=== PATIENT | male | born 1945 | race Caucasian/White ===

== ENCOUNTER → 2019-03-21 09:24 | Outpatient (CLI) | payer OTHER, SELFPAY ==
--- NOTE | 2019-03-21 09:57 | DI.CT.S_ITS ---
PROCEDURE: CT KIDNEY URETER BLADDER (KUB) INDICATIONS: Right flank pain. Unspecified abdominal pain TECHNIQUE: Noncontrast 5 mm thick sections acquired from the diaphragms to the symphysis. 5 mm thick coronal and sagittal reformats were then performed. For radiation dose reduction, the following was used: automated exposure control, adjustment of mA and/or kV according to patient size. COMPARISON: [facility], CT, IVP (ABD & PEL WWO CONTRAST), 12/25/2016, 11:21. [facility], CT, KIDNEY/ URETER/BLADDER, 09/25/2015, 7:29. [facility], CT, KIDNEY/ URETER/BLADDER, 11/24/2015, 8:23. [facility], CT, KIDNEY/ URETER/BLADDER, 12/29/2014, 7:51. FINDINGS: Image quality: Excellent. Lung bases: Lung bases are clear. Heart size is normal. Coronary artery calcifications are seen. A small hiatal hernia is incidentally noted. Urinary system: Both kidneys are normal in size. There is a 2 mm nonobstructing kidney stone seen at the inferior pole the right kidney. No hydronephrosis or perinephric fat stranding. Both ureters appear non-dilated throughout their expected courses. Bladder wall thickness is normal; no calcified bladder stones. Other solid organs: Liver is normal in size. There is a 9 mm simple liver cyst seen that measures 2 Hounsfield units. Gallbladder wall is not thickened. Pancreas is normal in contours. Spleen is normal in size. No adrenal nodules. Peritoneum and bowel: Scrutiny is given to the right lower quadrant and the appendix. No appendix (either normal or abnormal) is identified on this study. No focal right lower quadrant inflammatory changes are seen. Unenhanced bowel loops demonstrate normal wall thickness and caliber. No free fluid or air. Prominent sigmoid diverticulosis is seen, without findings of diverticulitis. Nodes and vessels: No retroperitoneal or mesenteric adenopathy by size criteria. Aorta and inferior vena cava are normal in caliber. Abdominal wall: No ventral hernias. Pelvis: No free pelvic fluid. No inguinal hernias or adenopathy. The prostate is prominent, measuring 5.8 cm transversely. Bones: No suspicious bony lesions. No vertebral body compression fractures. Mild levoconvex scoliotic curvature is noted. Degenerative changes are seen throughout, which are most prominent at the L5-S1 level. IMPRESSION: No hydronephrosis is seen. 2 mm nonobstructing right-sided kidney stone. No appendix can be seen. No focal right lower quadrant inflammatory changes are seen. Incidental note is made of: Coronary artery calcification Small hiatal hernia Simple liver cyst Diverticulosis is seen, without findings of active diverticulitis. and Levoconvex scoliotic curvature Focal S1 degenerative change Prominent prostate Dictated by: Monico Alejandro M.D. on 03/21/2019 at 9:39 Approved by: Monico Alejandro M.D. on 03/21/2019 at 9:44
== END ==
PROVIDERS: PCP Internal Medicine; Referring Provider Urology; Visit Provider Internal Medicine
DX: R10.9 Unspecified abdominal pain (principal); N20.0 Calculus of kidney; K76.89 Other specified diseases of liver; K57.90 Diverticulosis of intestine, part unspecified, without perforation or abscess without bleeding; K44.9 Diaphragmatic hernia without obstruction or gangrene; I25.10 Atherosclerotic heart disease of native coronary artery without angina pectoris; M41.9 Scoliosis, unspecified; M47.818 Spondylosis without myelopathy or radiculopathy, sacral and sacrococcygeal region
CPT/HCPCS: 74176

== ENCOUNTER 2019-03-31 21:39 | Emergency (ER) | payer OTHER, SELFPAY ==
--- NOTE | 2019-03-31 21:45 | ED.EAR ---
HPI - Ear Problem General Chief complaint: Skin/Abscess/Foreign Body Stated complaint: RUBBER PIECE STUCK IN LEFT EAR Time Seen by Provider: 03/31/19 21:43 Source: patient and family Mode of arrival: ambulatory Limitations: no limitations History of Present Illness HPI Narrative: 73-year-old male nonsmoker with history of asthma, GERD and hyperlipidemia presents with his for evaluation of foreign body in his left ear. The patient removed his hearing aid and the rubber year piece became dislodged in his external auditory canal. His tried getting out unsuccessfully hence his presentation here. He is otherwise well and free of complaint. He denies any pain MD Complaint: foreign body Location: left ear Exacerbating factors: nothing Discharge from ear: no Treatment prior to arrival: none Related Data Home Medications Medication Instructions Recorded Confirmed ASPIRIN CHEW - 81 mg PO Q DAY #0 10/11/06 (ASPIRIN) atorvastatin [Lipitor] 20 mg PO HS #0 10/11/06 albuterol sulfate [Proventil HFA] 2 puff INH Q4HP PRN #0 10/30/16 alfuzosin 10 mg PO HS #0 10/30/16 loratadine [Claritin Liqui-Gel] 10 mg PO PRN PRN #0 10/30/16 Previous Rx's Medication Instructions Recorded metoprolol succinate 50 mg PO QDAY #30 ter 11/01/16 pantoprazole [Protonix] 40 mg PO QDAY #20 tab 11/07/16 Review of Systems Constitutional Denies chills, Denies fever(s), Denies lethargy and Denies weakness Eyes Denies change in vision, Denies eye discharge, Denies irritation and Denies loss of vision ENT Ears, Nose, Mouth, and Throat: Reports system reviewed and no additional complaints, except as docu, Denies change in voice, Denies neck pain and Denies sore throat Cardiovascular Denies chest pain, Denies irregular heart rhythm, Denies lightheadedness, Denies palpitations, Denies dyspnea, Denies dyspnea on exertion and Denies orthopnea Respiratory Denies cough, Denies dyspnea, Denies dyspnea on exertion and Denies wheezing Gastrointestinal Gastrointestinal: Denies abdominal pain, Denies change in bowel habits, Denies diarrhea, Denies nausea and Denies vomiting Genitourinary Denies hematuria, Denies flank pain, Denies urinary incontinence and Denies urinary urgency Musculoskeletal Denies neck pain Integumentary/Breasts Denies pruritus, Denies erythema, Denies rash and Denies wounds Neurologic Denies confusion, Denies loss of vision and Denies weakness Psychiatric Denies anxiety, Denies confusion, Denies depression, Denies homicidal ideation and Denies suicidal ideation Endocrine Denies palpitations Hematologic/Lymphatic Denies easy bruising Allergic/Immunologic Denies wheezing PFSH Social History Smoking Status: Never smoker Social History Smoking Status: Never smoker Exam Narrative Exam Narrative: 73-year-old male, appears younger than stated age and in no obvious distress. at bedside Initial Vital Signs Initial Vital Signs: Vital Signs Temperature 97.8 F 03/31/19 21:58 Pulse Rate 84 03/31/19 21:58 Respiratory Rate 16 03/31/19 21:58 Blood Pressure 159/95 H 03/31/19 21:58 Pulse Oximetry 98 03/31/19 21:58 Const General: cooperative, healthy appearing and comfortable HENMT Head: normal to inspection Ears: EAC abnormal foreign body on the left Face and sinus: normal facial exam Eyes General: appearance normal, both eyes and all related structures Pupils: PERRL EOM: EOM intact bilaterally Resp Effort & Inspection: normal respiratory effort, able to speak in complete sentences, no respiratory distress and no use of accessory muscles Auscultation: clear to auscultation bilaterally, no rales, no rhonchi and no wheezes Cardio Rate: regular rate Rhythm: regular rhythm Heart Sounds: no click, no gallops, no murmurs and no rubs Pulses: normal peripheral pulses Skin General: no rashes or lesions noted Neuro General: alert, awake and oriented x3 Psych Appearance: grossly normal and well kempt Procedures Foreign Body EAR Location: ear canal (L) Foreign Body Suspected: other plastic TM intact pre-procedure: yes Foreign Body Removed: yes Foreign Body Removal Technique: instrumentation Tympanic Membrane Intact Post Procedure: Yes Patient Tolerated Procedure: Well Complications: none Course Vital Signs - 8 hr 03/31/19 21:58 Temperature 97.8 F Pulse Rate 84 Respiratory Rate 16 Blood Pressure 159/95 H Pulse Oximetry 98 Discharge Plan Departure Patient Disposition: Home Clinical Impression: Foreign body in ear Qualifiers: Encounter type: initial encounter Laterality: left Qualified Code(s): T16.2XXA - Foreign body in left ear, initial encounter Discharge Date/Time: 03/31/19 22:30 Interventions: ED Discharge Assessment Last Done: 03/31/19 22:30 Prescriptions: No Action atorvastatin [Lipitor] 20 MG tablet 20 mg PO HS Qty: 0 RF: 0 ASPIRIN CHEW - (ASPIRIN) 81 mg PO Q DAY Qty: 0 RF: 0 alfuzosin 10 MG tablet extended release 24 hr 10 mg PO HS Qty: 0 RF: 0 albuterol sulfate [Proventil HFA] 90 MCG/PUFF HFA aerosol inhaler 2 puff INH Q4HP PRNQty: 0 RF: 0 loratadine [Claritin Liqui-Gel] 10 MG capsule 10 mg PO PRN PRNQty: 0 RF: 0 metoprolol succinate 50 MG tablet extended release 24 hr 50 mg PO QDAY Qty: 30 RF: 0 pantoprazole [Protonix] 40 MG tablet,delayed release (DR/EC) 40 mg PO QDAY Qty: 20 RF: 0 Referrals: Anjelica Saavedra MD [Primary Care Provider] -
[2019-03-31 21:58] VITALS: BP 159/95; PULSE 84; RESP 16; TEMP 36.6; O2SAT 98; BMI 25.6
== END 2019-03-31 22:30 | disposition home or self-care (01) ==
PROVIDERS: Emergency Provider Emergency Medicine; PCP Internal Medicine
DX: T16.2XXA Foreign body in left ear, initial encounter (principal)
CPT/HCPCS: 99282

== ENCOUNTER → 2019-04-09 09:31 | Outpatient (CLI) | payer OTHER, SELFPAY ==
--- NOTE | 2019-04-09 09:58 | DI.CT.S_ITS ---
PROCEDURE: CT ABDOMEN PELVIS WO/W CON INDICATIONS: HEMATURIA TECHNIQUE: Optional 5 mm thick noncontrast images acquired from the diaphragm to the symphysis pubis. After the administration of intravenous contrast, 5 mm thick images acquired from the diaphragm to the symphysis pubis after a 10-minute delay. 2 mm thick coronal and sagittal reformats were then performed of the kidneys and ureters. For radiation dose reduction, the following was used: automated exposure control, adjustment of mA and/or kV according to patient size. COMPARISON: [facility], CT, CT KIDNEY URETER BLADDER (KUB), 03/21/2019, 9:32. FINDINGS: Image quality: Excellent. Lung bases: Lung bases are clear. Heart size is normal. Small hiatal hernia. Urinary system: Possible 2 mm nonobstructing calculus in the inferior pole the right kidney is less conspicuous since the prior study. No definite left-sided nephrolithiasis. There are bilateral small subcentimeter presumed exophytic cysts although these are technically too small to characterize and indeterminate. No hydronephrosis. Perinephric stranding. Ureters appear nondilated. The bladder is largely decompressed although no gross radiopaque bladder calculi identified. No definite suspicious filling defects seen within the contrast opacified portions of the renal collecting systems, ureters and bladder Other solid organs: 9 mm presumed hepatic cysts is grossly unchanged. Gallbladder unremarkable. Biliary system is non dilated. Pancreas enhances normally. Spleen is normal in size and enhancement. No adrenal nodules. Peritoneum and bowel: Bowel loops demonstrate normal wall thickness and caliber. No free fluid or air. Colonic diverticulosis is seen without evidence of acute complication. Rectum is grossly unremarkable Appendix is not clearly identified however no suspicious pericecal inflammatory changes are identified Nodes and vessels: No retroperitoneal or mesenteric adenopathy by size criteria. Aorta and inferior vena cava are normal in size. Abdominal wall: No ventral hernias. Pelvis: No pathologic free pelvic fluid. No inguinal hernias or adenopathy. Bones: No suspicious bony lesions. No vertebral body compression fractures. IMPRESSION: Less conspicuous appearance (versus resolution) of the previously described tiny nonobstructive right renal calculus since the prior study. No evidence of urinary obstruction. Elsewhere, no interval change. Dictated by: Mook Law M.D. on 04/09/2019 at 10:17 Approved by: Mook Law M.D. on 04/09/2019 at 10:26
== END ==
PROVIDERS: Family Provider Urology; PCP Internal Medicine; Visit Provider Internal Medicine
DX: R31.9 Hematuria, unspecified (principal); K57.90 Diverticulosis of intestine, part unspecified, without perforation or abscess without bleeding
CPT/HCPCS: 74178; Q9967

== ENCOUNTER → 2019-06-05 06:51 | Outpatient (CLI) | payer OTHER, SELFPAY ==
[2019-06-05 08:53] LABS: Alanine Aminotransferase 32 IU/L (21-72); Aspartate Aminotransferase 40 IU/L (17-59); Cholesterol 132 mg/dL (140-199); HDL Cholesterol 43 mg/dL (40-60); LDL Cholesterol Calculated 74 mg/dL (<100); Triglycerides 77 mg/dL (35-150)
== END ==
PROVIDERS: PCP Internal Medicine; Visit Provider Internal Medicine
DX: E78.5 Hyperlipidemia, unspecified (principal)
CPT/HCPCS: 36415; 80061; 84450; 84460

== ENCOUNTER 2019-07-16 13:11 | Day surgery (SDC) | payer OTHER, SELFPAY ==
[2019-07-16 13:59] VITALS: BP 190/98; PULSE 65; RESP 19; TEMP 36.8; O2SAT 97; BMI 24.7
--- NOTE | 2019-07-16 14:13 | PM.HP.1 ---
History of Present Illness History of Present Illness Date Patient Seen: 07/16/19 Time Patient Seen: 14:13 Chief complaint: [id number] Narrative: History of adenomatous colon polyps and family history of colon cancer in his sister Patient History Family & Social History Tobacco & Substance use: Smoking Status Never smoker Substance Use Type does not use Meds Home Medications and Allergies Home Medications Medication Instructions Recorded Confirmed Type atorvastatin [Lipitor] 20 mg PO HS #0 10/11/06 07/16/19 History alfuzosin 10 mg PO HS #0 10/30/16 07/16/19 History metoprolol succinate 50 mg PO QDAY #30 ter 11/01/16 07/16/19 Rx dabigatran etexilate [Pradaxa] 150 mg PO BID 07/16/19 07/16/19 History Allergies Allergy/AdvReac Type Severity Reaction Status Date / Time No Known Drug Allergies Allergy Verified 07/16/19 13:54 Exam Narrative Exam Narrative: Oropharynx free of lesions Chest clear to auscultation percussion Cardiac exam reveals no S3 or murmur Assessment & Plan Assessment & Plan narrative: Family history of colon cancer and personal history of colon polyps need for follow-up colonoscopy. Risks, benefits, alternatives have been explained.
--- NOTE | 2019-07-16 14:14 | PM.OP.ENDO ---
Operative Date/Time/Diagnoses Date of procedure: 07/16/19 Time of procedure: 14:14 Pre-op diagnosis: See indication Procedure & Clinicians Study performed: Colonoscopy Same procedure as scheduled: Yes Indications: Personal history of colon polyps and family history of colon cancer in a first-degree relative Surgeon: Daija Walsh Procedure Notes Procedure in detail: After informed consent was obtained the patient was placed in left lateral decubitus position. The video colonoscope was introduced the rectum slowly advanced to cecum. On slow withdrawal mucosa was carefully examined. The scope was removed. The patient tolerated the procedure well. Preparation was only fair prior to washing after which a was good. Blood loss none Complications none Sedation Total sedation time 15 minutes Versed 5 mg fentanyl 100 mg IV titration Findings 1. Extensive sigmoid diverticulosis 2. Otherwise negative colonoscopy to cecum One further colonoscopy in 5 years may be warranted. Patient have be in excellent health. He will restart his Pradaxa today.
[2019-07-16] MEDS: SODIUM CHLORIDE 0.9% 1,000 ML 150 ML IV (14:17)
[2019-07-16] MEDS: fentaNYL 250 MCG/5 ML INJ IV (15:06)
[2019-07-16] MEDS: MIDAZOLAM 5 MG/5 ML VIAL IV (15:06)
[2019-07-16 15:09] VITALS: BP 150/94; PULSE 72; RESP 12; TEMP 37.2; O2SAT 92
[2019-07-16 15:13] VITALS: BP 147/91; PULSE 68; RESP 12; O2SAT 94
[2019-07-16 15:18] VITALS: BP 145/98; PULSE 81; RESP 14; O2SAT 95
[2019-07-16 15:35] VITALS: BP 163/93; PULSE 77; RESP 16; TEMP 37; O2SAT 95
== END 2019-07-16 15:49 | disposition home or self-care (01) ==
PROVIDERS: PCP Internal Medicine; Visit Provider Internal Medicine Gastroenterology
PROC: 0DJD8ZZ Inspection of Lower Intestinal Tract, Via Natural or Artificial Opening Endoscopic (ICD-10-PCS; CPT 45378; principal; 2019-07-16 14:30)
DX: Z86.010 Personal history of colon polyps (principal); Z80.0 Family history of malignant neoplasm of digestive organs; K57.30 Diverticulosis of large intestine without perforation or abscess without bleeding
CPT/HCPCS: G0105; J2250; J3010

== ENCOUNTER → 2019-10-17 06:59 | Outpatient (CLI) | payer OTHER, SELFPAY ==
[2019-10-17 08:56] LABS: Hemoglobin A1C% w Est Avg Glu 5.3 % (4.0-6.0)
[2019-10-17 09:06] LABS: BUN Creatinine Ratio 15.5 (6-22); Blood Urea Nitrogen 17 mg/dL (9-20); Calcium 9.2 mg/dL (8.4-10.2); Carbon Dioxide 29 mmol/L (22-32); Chloride 104 mmol/L (98-107); Estimated Glomerular Filt Rate > 60.0 mL/min (>60); Glucose 98 mg/dL (80-110); HEMOLYSIS < 15 (0-50); Potassium 4.2 mmol/L (3.4-5.1); Sodium 139 mmol/L (137-145)
[2019-10-17 09:36] LABS: TSH w/ Reflex to FT4 4.09 uIU/mL (0.47-4.68)
== END ==
PROVIDERS: PCP Internal Medicine; Visit Provider Internal Medicine
DX: I10 Essential (primary) hypertension (principal); R81 Glycosuria
CPT/HCPCS: 36415; 80048; 83036; 84443

== ENCOUNTER → 2021-01-21 07:10 | Outpatient (CLI) | payer OTHER, SELFPAY ==
[2021-01-21 08:45] LABS: Blood Urea Nitrogen 16 mg/dL (9-20); Calcium 8.7 mg/dL (8.4-10.2); Carbon Dioxide 27 mmol/L (22-32); Chloride 106 mmol/L (98-107); Estimated Glomerular Filt Rate > 60.0 mL/min (>60); Glucose 108 mg/dL (80-110); HEMOLYSIS < 15 (0-50); Potassium 3.9 mmol/L (3.4-5.1); Sodium 138 mmol/L (137-145)
== END ==
PROVIDERS: PCP Internal Medicine; Referring Provider Specialist; Visit Provider Specialist
DX: N13.8 Other obstructive and reflux uropathy (principal); N40.1 Benign prostatic hyperplasia with lower urinary tract symptoms; N23 Unspecified renal colic
CPT/HCPCS: 36415; 80048; 84153

== ENCOUNTER → 2021-01-26 10:51 | Outpatient (CLI) | payer OTHER, SELFPAY ==
--- NOTE | 2021-01-26 11:32 | DI.CT.S_ITS ---
PROCEDURE: CT ABDOMEN PELVIS WO/W CON INDICATIONS: Hematuria TECHNIQUE: Optional 5 mm thick noncontrast images acquired from the diaphragm to the symphysis pubis. After the administration of intravenous contrast, 5 mm thick images acquired from the diaphragm to the symphysis pubis after a 10-minute delay. 2 mm thick coronal and sagittal reformats were then performed of the kidneys and ureters. For radiation dose reduction, the following was used: automated exposure control, adjustment of mA and/or kV according to patient size. COMPARISON: [facility], CT, CT ABDOMEN PELVIS WO/W CON, 04/09/2019, 9:42. FINDINGS: Image quality: Excellent. Lung bases: Lung bases are clear. Heart size is normal. Small hiatal hernia. Urinary system: Both kidneys are normal in size, without hydronephrosis or nephrolithiasis on pre-contrast images. Simple appearing cysts in the left kidney. A few subcentimeter cysts which are too small to further characterize. No perinephric fat stranding. There is normal bilateral renal enhancement. Renal calyces appear normal in morphology when filled with contrast. Opacified portions of both ureters demonstrate normal caliber. Bladder is unremarkable. No calcified bladder stones. Other solid organs: Liver is normal in size and enhancement. Small benign cyst in the right lobe of the liver, unchanged. Gallbladder is unremarkable. Biliary system is non dilated. Pancreas enhances normally. Spleen is normal in size and enhancement. No adrenal nodules. Peritoneum and bowel: Bowel loops demonstrate normal wall thickness and caliber. Diverticulosis. Mild stranding in the left lower quadrant adjacent to the diverticuli. No fluid collection. Appendix is not seen. No free fluid or air. Nodes and vessels: No retroperitoneal or mesenteric adenopathy by size criteria. Aorta and inferior vena cava are normal in size. Moderate calcified atherosclerotic plaque. Abdominal wall: Tiny fat containing periumbilical hernia. Pelvis: No pathologic free pelvic fluid. No inguinal hernias or adenopathy. Prostatomegaly. Prosthetic or utricle cyst measuring 1.2 cm, (190), unchanged. Bones: No suspicious bony lesions. No vertebral body compression fractures. IMPRESSION: 1. No upper urinary tract filling defect within the well opacified ureters. 2. No kidney stones. No hydronephrosis. 3. Diverticulosis. Mild stranding in the left lower quadrant which could be the sequelae of prior diverticulitis. No fluid collection. 4. Prostatomegaly. Small prosthetic cyst or utricle cyst, unchanged. Dictated by: Jesús Serra M.D. on 01/26/2021 at 13:49 Approved by: Jesús Serra M.D. on 01/26/2021 at 14:00
== END ==
PROVIDERS: PCP Internal Medicine; Referring Provider Specialist; Visit Provider Specialist
DX: K57.90 Diverticulosis of intestine, part unspecified, without perforation or abscess without bleeding (principal); N40.0 Benign prostatic hyperplasia without lower urinary tract symptoms; R31.9 Hematuria, unspecified
CPT/HCPCS: 74178; Q9967

== ENCOUNTER → 2021-07-27 07:30 | Outpatient (CLI) | payer OTHER, SELFPAY ==
[2021-07-27 09:40] LABS: Prostate Specific Antigen 1.68 ng/mL (0.10-4.00)
== END ==
PROVIDERS: PCP Physician Assistant Medical; Referring Provider Specialist; Visit Provider Specialist
DX: N13.8 Other obstructive and reflux uropathy (principal); N40.1 Benign prostatic hyperplasia with lower urinary tract symptoms
CPT/HCPCS: 36415; 84153

== ENCOUNTER → 2022-01-25 07:12 | Outpatient (CLI) | payer OTHER, SELFPAY ==
[2022-01-25 10:09] LABS: Prostate Specific Antigen 1.03 ng/mL (0.10-4.00)
== END ==
PROVIDERS: PCP Physician Assistant Medical; Referring Provider Specialist; Visit Provider Specialist
DX: N40.1 Benign prostatic hyperplasia with lower urinary tract symptoms (principal); N13.8 Other obstructive and reflux uropathy
CPT/HCPCS: 36415; 84153

== ENCOUNTER → 2022-02-08 09:10 | Outpatient (CLI) | payer OTHER, SELFPAY ==
--- NOTE | 2022-02-08 09:13 | DI.MG.S_ITS ---
MALE BILATERAL DIGITAL DIAGNOSTIC MAMMOGRAM 3D/2D: 02/08/2022 CLINICAL: Left breast lump. No prior exams were available for comparison. Bilateral mild gynecomastia. No suspicious mass, calcification, or other finding in either breast. IMPRESSION: NEGATIVE There is no mammographic evidence of malignancy. Mild bilateral gynecomastia. This exam was interpreted at Station ID: [id number]. NOTE: For mammograms, a report in lay terms will be sent to the patient. Approximately 15% of breast malignancies will not be visualized mammographically. In the management of a palpable breast mass, a negative mammogram must not discourage biopsy of a clinically suspicious lesion. Electronically Signed By: Mike Lee M.D. jr/:02/09/2022 10:24:21 copy to: NELA REENE M.D., [facility], ph: [phone], fax: [phone] letter sent: Normal Exam ACR BI-RADS Category 1: Negative [id number]
== END ==
PROVIDERS: PCP Physician Assistant Medical; Referring Provider Physician Assistant Medical; Visit Provider Physician Assistant Medical
DX: N63.20 Unspecified lump in the left breast, unspecified quadrant (principal); N62 Hypertrophy of breast
CPT/HCPCS: 77066; G0279

== ENCOUNTER → 2023-03-13 07:02 | Outpatient (CLI) | payer OTHER, SELFPAY ==
[2023-03-13 09:54] LABS: Prostate Specific Antigen 1.94 ng/mL (0.10-4.00)
== END ==
PROVIDERS: PCP Physician Assistant Medical; Referring Provider Specialist; Visit Provider Specialist
DX: N40.1 Benign prostatic hyperplasia with lower urinary tract symptoms (principal); N13.8 Other obstructive and reflux uropathy
CPT/HCPCS: 36415; 84153

== ENCOUNTER → 2024-03-19 08:08 | Outpatient (CLI) | payer OTHER, SELFPAY | PROVIDERS: PCP Physician Assistant Medical; Visit Provider Specialist | DX: N40.1 Benign prostatic hyperplasia with lower urinary tract symptoms (principal); N13.8 Other obstructive and reflux uropathy | CPT/HCPCS: 87086 ==

== ENCOUNTER 2025-03-31 10:06 | Emergency (ER) | payer OTHER, SELFPAY ==
[2025-03-31] VITALS (18 sets, daily range): BP systolic 162–206; BP diastolic 72–92; PULSE 48–79; RESP 15–26; TEMP 36.6; O2SAT 96–99; BMI 24.0
--- NOTE | 2025-03-31 10:19 | EKG_ITS ---
[address] [address] Test Date: 2025-03-31 Pat Name: Alexandr Kate Department: Room: Gender: Male [employer] Agent: DEBORAH : 1945 Requested By: Order Number: [id number] Reading MD: Lonnie Richardson Measurements Intervals [place] Rate: 55 P: 54 [place]: 198 QRS: 49 QRSD: 82 T: 63 QT: 398 QTc: 380 Interpretive Statements Sinus bradycardia Electronically Signed On 03-31-2025 14:01:37 PDT by Lonnie Richardson
--- NOTE | 2025-03-31 10:21 | DI.RAD.S_ITS ---
PROCEDURE: XR CHEST 1V INDICATIONS: chest pain TECHNIQUE: One view of the chest was acquired. COMPARISON: [facility], CHEST 1 VIEW, 11/06/2016, 21:22. FINDINGS: Surgical changes and devices: None. Lungs and pleura: Lungs are clear. No pleural effusions or pneumothorax. Mediastinum: Mediastinal contours appear normal. Heart size is normal. Bones and chest wall: No suspicious bony lesions. Overlying soft tissues appear unremarkable. IMPRESSION: No acute cardiopulmonary abnormality is seen. Dictated by: Ly Srivastava MD, PhD on 03/31/2025 at 11:12 Approved by: Ly Srivastava MD, PhD on 03/31/2025 at 11:13
[2025-03-31 10:40] LABS: Add Manual Diff / Slide Review NO; Basophils Absolute Auto 0 /uL (0-100); Basophils Percent Auto 0.4 % (0-2); Eosinophils Absolute Auto 0 /uL (0-450); Eosinophils Percent Auto 0.9 % (2-4); Hematocrit 37.7 % (41-53); Hemoglobin 12.9 g/dL (13.5-17.5); Lymphocytes Absolute Auto 1500 /uL (1100-4500); Mean Corpuscular HGB Conc 34.1 % (30-36); Mean Corpuscular Hemoglobin 32.4 PG (26-34); Mean Corpuscular Volume 95.1 fL (80-100); Monocytes Absolute Auto 700 /uL (0-900); Monocytes Percent Auto 14.3 % (3-14); Neutrophils Absolute Auto 2600 /uL (1500-7000); Neutrophils Percent Auto 53.4 % (50-75); Platelet Count 101 X10^3/uL (150-400); Red Blood Cell Count 3.96 X10^6/uL (4.5-5.9); Red Cell Distribution Width 13.4 % (11.6-14.8); White Blood Cell Count 4.8 X10^3/uL (4.5-11.0)
--- NOTE | 2025-03-31 10:47 | ED_ITS ---
HPI - General Adult General Chief complaint: Dizziness Stated complaint: needs blood pressure checked/light headed and dizz Time Seen by Provider: 03/31/25 10:11 Source: patient Mode of arrival: Ambulatory History of Present Illness HPI narrative: 79-year-old gentleman with a history of hypertension, at least 1 prior episode of atrial fibrillation currently on Pradaxa, hyperlipidemia presents complaining of severe fatigue and this morning after minimal yd work profuse diaphoresis. He notes that he has been slowing down significantly over the last year but over the last couple of weeks it does seem like he has been significantly more fatigued. He has not experienced exertional dyspnea nor orthopnea. Until today he has not had any episodes of diaphoresis. To his knowledge he does not have any cardiac disease. He last saw daily sales audit clerk 7 years ago in his followed by physicians at [facility]. No recent fever, cough, chills, nausea, vomiting, diarrhea. No lower extremity edema. he notes over the past number of months to years when he stands up he typically gets somewhat lightheaded and feels like he is falling forward with a bit of dizziness. He experiences again this morning with his diaphoretic episode. Related Data Home Medications Medication Instructions Recorded Confirmed alfuzosin 10 mg tablet,extended 10 mg PO HS ##0 10/30/16 03/19/24 release 24 hr dabigatran etexilate 150 mg 150 mg PO BID 07/16/19 03/19/24 capsule (Pradaxa) cholecalciferol (vitamin D3) 50 50 mcg PO DAILY 11/26/20 03/19/24 mcg (2,000 unit) capsule losartan 50 mg tablet 50 mg PO DAILY 11/26/20 03/19/24 atorvastatin 20 mg tablet (Lipitor) 40 mg PO HS #0 tabs 03/21/23 03/19/24 Previous Rx's Medication Instructions Recorded metoprolol succinate 50 mg 50 mg PO QDAY ##30 11/01/16 tablet,extended release 24 hr Allergies Allergy/AdvReac Type Severity Reaction Status Date / Time No Known Drug Allergies Allergy Verified 03/31/25 10:15 Review of Systems Review of Systems Narrative: Pertinent positive and negative findings as per HPI Patient History Medical History History of nephrolithiasis Hematuria BPH w urinary obs/LUTS H/O nephrolithotomy with removal of calculi Kidney stones Basal cell carcinoma Arthritis Surgical History History of hernia repair History of appendectomy Family History Father Coronary artery disease Kidney stones Social History marital status: number of children: 2 household members: spouse occupational status: employed Smoking Status: Unknown if ever smoked alcohol intake: never caffeine: No Smoking Status: Unknown if ever smoked Exam Initial Vital Signs Initial Vital Signs: Vital Signs Temperature 97.8 F 03/31/25 10:07 Pulse Rate 71 03/31/25 10:07 Respiratory Rate 17 03/31/25 10:07 Blood Pressure 206/92 H 03/31/25 10:07 Pulse Oximetry 99 03/31/25 10:07 Oxygen Delivery Method Room Air 03/31/25 10:07 General: Healthy appearing, in no acute distress. Able to give a complete and coherent history. Well-nourished well-developed HEENT: Moist mucous membranes, normal sclera with reactive pupils, Neck: No JVD, supple Respiratory: Lungs are clear to auscultation, no wheezing no rales no rhonchi. Full and symmetrical air movement Cardiac: Regular rate and rhythm no murmurs no bruits Abdomen: Soft, nontender, no rebound or guarding, no flank pain Skin: Warm and dry, no rashes Neurologic: Grossly neurologically intact with no obvious asymmetries or abnormalities Extremities: No trauma, well perfused Psych: Cooperative, appropriate insight and affect Course Orders Ordered: ED Orders 03/31/25 10:21 XR chest 1V Stat EKG-12 Lead Stat 03/31/25 10:30 Complete Blood Count AUTO DIFF Stat Comprehensive Metabolic Panel Stat Lipase Stat Magnesium Stat Troponin I Stat 03/31/25 12:20 Trop I [Troponin I] Stat Discontinued Medications Sodium Chloride (Normal Saline 0.9%) 1,000 mls @ 1,000 mls/hr IV BOLUS ONE Stop: 03/31/25 12:40 Last Admin: 03/31/25 12:24 Dose: 1,000 mls/hr Documented By: ES Vital Signs Vital signs: Vital Signs - 8 hr 03/31/25 10:07 03/31/25 10:42 Temperature 97.8 F Pulse Rate 71 55 L Respiratory Rate 17 17 Blood Pressure 206/92 H 165/81 H Pulse Oximetry 99 98 Oxygen Delivery Method Room Air Room Air Medical Decision Making Lab Data 03/31/25 10:30 03/31/25 10:30 Labs: Lab Results 03/31/25 03/31/25 Range/Units 10:30 12:20 WBC 4.8 (4.5-11.0) X10^3/uL RBC 3.96 L (4.5-5.9) X10^6/uL Hgb 12.9 L (13.5-17.5) g/dL Hct 37.7 L (41-53) % MCV 95.1 (80-100) fL MCH 32.4 (26-34) PG MCHC 34.1 (30-36) % RDW 13.4 (11.6-14.8) % Plt Count 101 L (150-400) X10^3/uL Neut % (Auto) 53.4 (50-75) % Lymph % (Auto) 31.0 (25-40) % [place]ha % (Auto) 14.3 H (3-14) % Eos % (Auto) 0.9 L (2-4) % Baso % (Auto) 0.4 (0-2) % Neut # (Auto) 2600 (6207-2724) /uL Lymph # (Auto) 1500 (9524-7154) /uL [place]ha # (Auto) 700 (0-900) /uL Eos # (Auto) 0 (0-450) /uL Baso # (Auto) 0 (0-100) /uL Sodium 138 (137-145) mmol/L Potassium 4.1 (3.4-5.1) mmol/L Chloride 106 (98-107) mmol/L Carbon Dioxide 26 (22-32) mmol/L BUN 21 H (9-20) mg/dL Creatinine 1.26 H (0.66-1.25) mg/dL Estimated GFR 58 L (>60) mL/min BUN/Creatinine Ratio 16.7 (6-22) Glucose 101 H (70-99) mg/dL Calcium 9.0 (8.4-10.2) mg/dL Magnesium 1.8 (1.6-2.3) mg/dL Total Bilirubin 0.4 (0.2-1.3) mg/dL AST 37 (17-59) IU/L ALT 24 (<50) IU/L Alkaline Phosphatase 49 (38-126) U/L Troponin I < 0.012 < 0.012 (0.01-0.034) ng/mL Total Protein 7.2 (6.3-8.2) g/dL Albumin 4.2 (3.5-5.0) g/dL Globulin 3.0 (1.7-4.1) g/dL Albumin/Globulin Ratio 1.4 (1.0-2.8) Lipase 55 (23-300) U/L MDM Narrative Medical decision making narrative: CC: severe fatigue with diaphoresis Complicating co-morbidities: hypertension, hyperlipidemia, single episode of AFib Data collected from: patient Differential considered: acute coronary syndrome, atrial fibrillation, other rhythm abnormality, STEMI, congestive heart failure, pneumothorax, pneumonia Medical records reviewed: Records from [facility] are available. Most recent note is January 06. Hypertension, paroxysmal atrial flutter, BPH, there was no discussion of chronic renal failure or elevated creatinine Exam documented above, pertinent findings include: exam is actually quite benign. Lab Test results independently reviewed as above. Pertinent findings: CBC shows mild anemia at 12.9 and 37.7. Last comparison is 2016. No leukocytosis Chemistries show creatinine at 1.26 comparison is from 2020 with creatinine at 0.089. Remainder of chemistries are unremarkable Independently reviewed EKG: sinus rhythm at a rate of 55 with no acute abnormalities appreciated Imaging studies independently reviewed: chest x-ray is unremarkable, no significant fluid overload or cardiomegaly appreciated Treatments: 1 L of saline Discussion: 79-year-old gentleman complains of increasing fatigue and dizziness particularly when he stood up this morning. There was no evidence of acute life-threatening issues such as recurrent AFib, acute coronary syndrome, congestive heart failure, liver failure, significant electrolyte abnormalities. Of note his creatinine is slightly elevated. I did get records from his primary care physician's office however these did not include recent blood tests. Patient describes fairly significant lower urinary tract symptoms and making a point of limiting his fluid intake after about 4 in the afternoon. He has an appointment scheduled tomorrow with Dr. Ro regarding his BPH. For the time being, I have suggested that he had an extra glass of water with his morning coffee even if he does not feel particularly thirsty. I do not have a complete explanation for his increasing general fatigue and did refer him back to his primary care physician. All of this is reviewed with the patient, questions are answered he is safe for discharge Discharge Plan Departure Patient Disposition: Home Clinical Impression: BPH w urinary obs/LUTS, Dizziness, Near syncope, Creatinine elevation Fatigue Qualifiers: Fatigue type: unspecified Qualified Code(s): R53.83 - Other fatigue Instructions: DI for Dizziness-Nonvertigo Activity Restrictions/Additional Instructions: thank you for coming in today. I did not find life-threatening cause for the severe dizziness that you had along with a dramatic fatigue this morning after minimal exertion. It does not look like you are having a heart attack or heart attack like syndrome, there was no sign of congestive heart failure, your heart rate is appropriate and in sinus rhythm. your kidney function was slightly elevated suggesting mild dehydration. Given your prostate symptoms this may be contributing to the slight increasing creatinine, the test that we use to estimate kidney function. please discuss this when you talk with your new urologist tomorrow regarding the increased overall fatigue in the last number of months, I would suggest that you schedule an appointment with your primary care physician to discuss this further. If you find that you are getting worse or develop any new symptoms, please feel free to return to the emergency department for further evaluation. Prescriptions: No Action alfuzosin 10 MG tablet extended release 24 hr 10 mg PO HS Qty: 0 metoprolol succinate 50 MG tablet extended release 24 hr 50 mg PO QDAY Qty: 30 0RF cholecalciferol (vitamin D3) 50 mcg (2,000 unit) capsule 50 mcg PO DAILY losartan 50 mg tablet 50 mg PO DAILY atorvastatin [Lipitor] 20 mg tablet 40 mg PO HS Qty: 0 Pradaxa 150 mg Capsule 150 mg PO BID Referrals: Harjeet Ro DO [Physician] - Jessica Mack MD [Emergency Provider] - Mark Loja PA-C [Primary Care Provider] - Stand Alone Forms: Patient Portal/API/Survey
[2025-03-31 10:51] LABS: Alanine Aminotransferase 24 IU/L (<50); Albumin 4.2 g/dL (3.5-5.0); Albumin Globulin Ratio 1.4 (1.0-2.8); Alkaline Phosphatase 49 U/L (38-126); Aspartate Aminotransferase 37 IU/L (17-59); BUN Creatinine Ratio 16.7 (6-22); Bilirubin Total 0.4 mg/dL (0.2-1.3); Blood Urea Nitrogen 21 mg/dL (9-20); Carbon Dioxide 26 mmol/L (22-32); Chloride 106 mmol/L (98-107); Estimated Glomerular Filt Rate 58 mL/min (>60); Glucose 101 mg/dL (70-99); HEMOLYSIS < 15 (0-50); Lipase 55 U/L (23-300); Magnesium 1.8 mg/dL (1.6-2.3); Potassium 4.1 mmol/L (3.4-5.1); Sodium 138 mmol/L (137-145); Total Protein 7.2 g/dL (6.3-8.2)
[2025-03-31 11:03] LABS: Troponin I < 0.012 ng/mL (0.01-0.034)
[2025-03-31] MEDS: SODIUM CHLORIDE 0.9% 1,000 ML 1000 ML IV (12:24)
[2025-03-31 12:52] LABS: Troponin I < 0.012 ng/mL (0.01-0.034)
== END 2025-03-31 14:11 | disposition home or self-care (01) ==
PROVIDERS: Emergency Provider Emergency Medicine; PCP Physician Assistant Medical
DX: R42 Dizziness and giddiness (principal); R53.83 Other fatigue; R55 Syncope and collapse; N40.1 Benign prostatic hyperplasia with lower urinary tract symptoms; Z79.01 Long term (current) use of anticoagulants; R79.89 Other specified abnormal findings of blood chemistry
CPT/HCPCS: 36415; 71045; 80053; 83690; 83735; 84484; 85025; 93005; 96360; 99284

== ENCOUNTER → 2025-04-17 13:59 | Outpatient (CLI) | payer OTHER, SELFPAY ==
[2025-04-17 15:38] LABS: Estimated Glomerular Filt Rate > 60 mL/min (>60)
== END ==
PROVIDERS: PCP Nurse Practitioner Family; Referring Provider Nurse Practitioner Family; Visit Provider Urology
DX: R31.9 Hematuria, unspecified (principal); N23 Unspecified renal colic; Z87.442 Personal history of urinary calculi
CPT/HCPCS: 36415; 82565

== ENCOUNTER 2025-04-22 10:32 | Emergency (ER) | payer OTHER, SELFPAY ==
[2025-04-22] VITALS (16 sets, daily range): BP systolic 167–198; BP diastolic 68–82; PULSE 49–70; RESP 15–25; TEMP 37; O2SAT 96–100; BMI 23.7
--- NOTE | 2025-04-22 10:54 | ED.BACK ---
HPI - Back Pain/Injury General Chief Complaint: Back Pain/Injury Stated Complaint: Lower back pain Possible Kidney stones Time Seen by Provider: 04/22/25 10:54 History of Present Illness HPI Narrative: 79-year-old gentleman history of atrial fibrillation on Pradaxa dyslipidemia hypertension and BPH presents with pain across the lower back this has been going on for the past week but worse this morning unrelieved with Tylenol this morning. Patient states he is being worked up for kidney stones and has a pending outpatient CT scan that just got approved but has not proceeded. He last had a bowel movement earlier today denies any nausea, vomiting diarrhea, constipation, penile discharge, testicular pain, fever, chills, body aches. Other than what is stated 14 point review of system is negative. Related Data Home Medications ?Medication ?Instructions ?Recorded ?Confirmed alfuzosin 10 mg tablet,extended 10 mg PO HS ##0 10/30/16 04/01/25 release 24 hr dabigatran etexilate 150 mg 150 mg PO BID 07/16/19 04/01/25 capsule (Pradaxa) cholecalciferol (vitamin D3) 50 50 mcg PO DAILY 11/26/20 04/01/25 mcg (2,000 unit) capsule losartan 50 mg tablet 50 mg PO DAILY 11/26/20 04/01/25 atorvastatin 20 mg tablet (Lipitor) 40 mg PO HS #0 tabs 03/21/23 04/01/25 acetaminophen 500 mg oral powder 500 mg PO QID PRN 04/01/25 04/01/25 packet (Tylenol Extra Strength) Previous Rx's ?Medication ?Instructions ?Recorded metoprolol succinate 50 mg 50 mg PO QDAY ##30 11/01/16 tablet,extended release 24 hr Allergies Allergy/AdvReac Type Severity Reaction Status Date / Time No Known Drug Allergies Allergy Verified 04/22/25 10:45 Review of Systems Review of Systems ROS Unobtainable: All systems reviewed & are unremarkable except as noted in HPI and below Patient History Medical History History of nephrolithiasis Hematuria BPH w urinary obs/LUTS H/O nephrolithotomy with removal of calculi Kidney stones Basal cell carcinoma Arthritis Surgical History History of hernia repair History of appendectomy Family History Father Coronary artery disease Kidney stones Social History marital status: number of children: 2 household members: spouse occupational status: employed Smoking Status: Never smoker alcohol intake: never caffeine: No Smoking Status: Never smoker Exam Narrative Exam Narrative: GENERAL: [79] year old patient appears stated age. Well-developed patient, in mild distress. HEAD: Atraumatic. Normocephalic. EYES: Pupils equal round and reactive. Extraocular motions intact. No scleral icterus. No injection or drainage. ENT: Nose without bleeding, purulent drainage. Throat without erythema, tonsillar hypertrophy or exudate. Airway patent. NECK: Trachea midline. Non tender CARDIOVASCULAR: Regular rate and rhythm without murmurs, gallops, or rubs. RESPIRATORY: Clear to auscultation. Breath sounds equal bilaterally. No wheezes, rales, or rhonchi. GASTROINTESTINAL: Abdomen soft, non-tender, nondistended. EXTREMITIES: No edema or joint tenderness. BACK: TTP paralumbosacral L4-5 SI B/L without deformity or crepitance. No flank tenderness. NEURO: AOx3. SKIN: No rash or erythema of visible areas Initial Vital Signs Initial Vital Signs: Vital Signs Temperature 98.6 F 04/22/25 10:45 Pulse Rate 70 04/22/25 10:45 Respiratory Rate 20 04/22/25 10:45 Blood Pressure 190/82 H 04/22/25 10:45 Pulse Oximetry 100 04/22/25 10:45 Oxygen Delivery Method Room Air 04/22/25 10:45 Course Orders Ordered: ED Orders 04/22/25 11:01 Urine Microscopic Stat 04/22/25 11:14 Complete Blood Count AUTO DIFF Stat Comprehensive Metabolic Panel Stat Lipase Stat 04/22/25 11:22 Urine Culture Stat 04/22/25 12:07 CT abdomen pelvis w con Stat Ondansetron HCl (Ondansetron 4 Mg/2 Ml Inj) 4 mg IV NOW PRN PRN Reason: Nausea And Vomiting Ondansetron HCl (Ondansetron 4 Mg Odt) 4 mg PO NOW PRN PRN Reason: Nausea And Vomiting Vital Signs Vital signs: Vital Signs - 8 hr 04/22/25 10:45 Temperature 98.6 F Pulse Rate 70 Respiratory Rate 20 Blood Pressure 190/82 H Pulse Oximetry 100 Oxygen Delivery Method Room Air MDM - Back Pain/Injury Lab Data 04/22/25 11:14 04/22/25 11:14 Labs: Lab Results 04/22/25 04/22/25 Range/Units 11:01 11:14 WBC 5.1 (4.5-11.0) X10^3/uL RBC 4.07 L (4.5-5.9) X10^6/uL Hgb 13.2 L (13.5-17.5) g/dL Hct 38.9 L (41-53) % MCV 95.6 (80-100) fL MCH 32.5 (26-34) PG MCHC 34.0 (30-36) % RDW 13.6 (11.6-14.8) % Plt Count 104 L (150-400) X10^3/uL Neut % (Auto) 62.5 (50-75) % Lymph % (Auto) 26.2 (25-40) % [place] % (Auto) 10.5 (3-14) % Eos % (Auto) 0.5 L (2-4) % Baso % (Auto) 0.3 (0-2) % Neut # (Auto) 3200 (8441-3476) /uL Lymph # (Auto) 1300 (8210-7103) /uL [place] # (Auto) 500 (0-900) /uL Eos # (Auto) 0 (0-450) /uL Baso # (Auto) 0 (0-100) /uL Sodium 139 (137-145) mmol/L Potassium 4.4 (3.4-5.1) mmol/L Chloride 105 (98-107) mmol/L Carbon Dioxide 27 (22-32) mmol/L BUN 19 (9-20) mg/dL Creatinine 1.02 (0.66-1.25) mg/dL Estimated GFR > 60 (>60) mL/min BUN/Creatinine Ratio 18.6 (6-22) Glucose 119 H (70-99) mg/dL Calcium 9.3 (8.4-10.2) mg/dL Total Bilirubin 0.5 (0.2-1.3) mg/dL AST 38 (17-59) IU/L ALT 25 (<50) IU/L Alkaline Phosphatase 47 (38-126) U/L Total Protein 7.5 (6.3-8.2) g/dL Albumin 4.5 (3.5-5.0) g/dL Globulin 3.0 (1.7-4.1) g/dL Albumin/Globulin Ratio 1.5 (1.0-2.8) Lipase 53 (23-300) U/L Urine RBC 1-5/hpf (0-5/HPF) Urine WBC None seen (0-5/HPF) Ur Squamous Epith Cells 0-1 /hpf (0-5/HPF) Urine Bacteria None seen (None) Ur Culture Indicated? Cult not indicated Vol Urine Centrifuged 10ml (spun) Urine Dip Bedside Urine Glucose Negative Bedside Urine Bilirubin - Negative Bedside Urine Ketone - Negative Urine Specific [place] 1.010 Bedside Urine Occult Blood ++ Bedside Urine pH 7.0 Bedside Urine Protein - Negative Bedside Urine Urobilinogen - Negative Bedside Urine Nitrite - Negative Bedside Urine Leukocytes - Negative Esterase Imaging Data CT scan - abdomen/pelvis: Radiologist's Impression: [place] [address] CT Scan Report Signed Patient: Alexandr Kate MR#: [id number] : 1945 Acct:[id number] Age/Sex: 79 / M Date of Service: 04/22/25 Loc: ED Accession Number: [id number] Procedure: CT abdomen pelvis w con Ordering Provider: Graham Bear D.O. PROCEDURE: CT ABDOMEN PELVIS W CON INDICATIONS: abd pain/ n/v TECHNIQUE: After the administration of intravenous contrast, axial sections acquired from the lung bases to the pubic symphysis. Coronal and sagittal reformats were performed. For radiation dose reduction, the following was used: automated exposure control, adjustment of mA and/or kV according to patient size. COMPARISON: [facility], CT, CT ABDOMEN PELVIS WO/W CON, 01/26/2021, 11:03. FINDINGS: Image quality: Diagnostic. Lower Chest: No significant findings. ABDOMEN: Liver: No solid mass. Stable hypoattenuating lesion in the right hepatic lobe, which is most likely a benign cyst. Gallbladder: No radiopaque gallstones or wall thickening. Biliary ducts: No biliary dilation. Pancreas: No ductal dilation. Spleen: Size is within normal limits. Adrenal Glands: No adrenal nodules. Kidneys and Ureters: No hydronephrosis. No solid mass. No complex renal cystic lesion which requires follow up. Stomach and Bowel: Mild circumferential wall thickening in the distal esophagus. Small hiatal hernia. Small bowel loops are nondilated. Multiple diverticula are seen in the colon without signs of acute diverticulitis. Peritoneum: No abnormal intraperitoneal fluid. No free air. Ventral Wall: No significant ventral hernia. Abdominal Nodes: No retroperitoneal or mesenteric adenopathy by size criteria. Vessels: Aorta and inferior vena cava are normal in size. PELVIS: Pelvic Organs: Prostate is enlarged. Bladder: No bladder wall thickening, accounting for underdistention. Pelvic Nodes: No enlarged lymph nodes. Miscellaneous: No inguinal hernias are seen. Bones: No aggressive osseous abnormality. IMPRESSION: 1. Mild circumferential wall thickening in the distal esophagus is suspicious for esophagitis.Small hiatal hernia. 2. Colonic diverticulosis without signs of acute diverticulitis. 3. Prostatomegaly. Approved by: Pritesh Neumann M.D. on 04/22/2025 at 13:51 MDM Narrative Medical decision making narrative: All lab work, vital signs, nurse triage note, medication list, previous ER visits, and all imaging studies reviewed. GCS 15 nonfocal neuro exam. Lab work shows platelet 104 glucose 119 and urine was normal. Patient took Tylenol prior to arrival here in his feeling much better at this time. Differential diagnosis includes kidney infection, UTI, kidney stone, muscle spasm, arthritis, diverticulitis, pancreatitis. Patient will take Tylenol as needed for pain control and to return with new or worsening symptoms and to follow up with Urology as scheduled. Discharge Plan Departure Patient Disposition: Home Clinical Impression: Acute low back pain Qualifiers: Back pain laterality: bilateral Sciatica presence: without sciatica Qualified Code(s): M54.50 - Low back pain, unspecified Instructions: DI for Back Spasm Activity Restrictions/Additional Instructions: Return with new or worsening symptoms. Take your medicines as directed Prescriptions: No Action alfuzosin 10 MG tablet extended release 24 hr 10 mg PO HS Qty: 0 metoprolol succinate 50 MG tablet extended release 24 hr 50 mg PO QDAY Qty: 30 0RF cholecalciferol (vitamin D3) 50 mcg (2,000 unit) capsule 50 mcg PO DAILY losartan 50 mg tablet 50 mg PO DAILY atorvastatin [Lipitor] 20 mg tablet 40 mg PO HS Qty: 0 Pradaxa 150 mg Capsule 150 mg PO BID Tylenol Extra Strength 500 mg powder in packet 500 mg PO QID PRN Referrals: Marisela Romero ARNP [Primary Care Provider, Medical] Stand Alone Forms: Patient Portal/API
[2025-04-22 11:34] LABS: Add Manual Diff / Slide Review NO; Basophils Absolute Auto 0 /uL (0-100); Basophils Percent Auto 0.3 % (0-2); Eosinophils Absolute Auto 0 /uL (0-450); Eosinophils Percent Auto 0.5 % (2-4); Hematocrit 38.9 % (41-53); Hemoglobin 13.2 g/dL (13.5-17.5); Lymphocytes Absolute Auto 1300 /uL (1100-4500); Lymphocytes Percent Auto 26.2 % (25-40); Mean Corpuscular Hemoglobin 32.5 PG (26-34); Mean Corpuscular Volume 95.6 fL (80-100); Monocytes Absolute Auto 500 /uL (0-900); Monocytes Percent Auto 10.5 % (3-14); Neutrophils Absolute Auto 3200 /uL (1500-7000); Neutrophils Percent Auto 62.5 % (50-75); Platelet Count 104 X10^3/uL (150-400); Red Blood Cell Count 4.07 X10^6/uL (4.5-5.9); Red Cell Distribution Width 13.6 % (11.6-14.8); White Blood Cell Count 5.1 X10^3/uL (4.5-11.0)
[2025-04-22 11:41] LABS: Bacteria Urine None Seen; Culture Indicated Urine Cult Not Indicated; RBC Urine 1-5/HPF (0-5/HPF); Squamous Epithelial Cell Urine 0-1 /HPF (0-5/HPF); Urine Volume 10mL (spun); WBC Urine None Seen (0-5/HPF)
[2025-04-22 11:44] LABS: Alanine Aminotransferase 25 IU/L (<50); Albumin 4.5 g/dL (3.5-5.0); Albumin Globulin Ratio 1.5 (1.0-2.8); Alkaline Phosphatase 47 U/L (38-126); Aspartate Aminotransferase 38 IU/L (17-59); BUN Creatinine Ratio 18.6 (6-22); Bilirubin Total 0.5 mg/dL (0.2-1.3); Blood Urea Nitrogen 19 mg/dL (9-20); Calcium 9.3 mg/dL (8.4-10.2); Carbon Dioxide 27 mmol/L (22-32); Chloride 105 mmol/L (98-107); Estimated Glomerular Filt Rate > 60 mL/min (>60); Glucose 119 mg/dL (70-99); HEMOLYSIS < 15 (0-50); Lipase 53 U/L (23-300); Potassium 4.4 mmol/L (3.4-5.1); Sodium 139 mmol/L (137-145); Total Protein 7.5 g/dL (6.3-8.2)
--- NOTE | 2025-04-22 12:07 | DI.CT.S_ITS ---
PROCEDURE: CT ABDOMEN PELVIS W CON INDICATIONS: abd pain/ n/v TECHNIQUE: After the administration of intravenous contrast, axial sections acquired from the lung bases to the pubic symphysis. Coronal and sagittal reformats were performed. For radiation dose reduction, the following was used: automated exposure control, adjustment of mA and/or kV according to patient size. COMPARISON: [facility], CT, CT ABDOMEN PELVIS WO/W CON, 01/26/2021, 11:03. FINDINGS: Image quality: Diagnostic. Lower Chest: No significant findings. ABDOMEN: Liver: No solid mass. Stable hypoattenuating lesion in the right hepatic lobe, which is most likely a benign cyst. Gallbladder: No radiopaque gallstones or wall thickening. Biliary ducts: No biliary dilation. Pancreas: No ductal dilation. Spleen: Size is within normal limits. Adrenal Glands: No adrenal nodules. Kidneys and Ureters: No hydronephrosis. No solid mass. No complex renal cystic lesion which requires follow up. Stomach and Bowel: Mild circumferential wall thickening in the distal esophagus. Small hiatal hernia. Small bowel loops are nondilated. Multiple diverticula are seen in the colon without signs of acute diverticulitis. Peritoneum: No abnormal intraperitoneal fluid. No free air. Ventral Wall: No significant ventral hernia. Abdominal Nodes: No retroperitoneal or mesenteric adenopathy by size criteria. Vessels: Aorta and inferior vena cava are normal in size. PELVIS: Pelvic Organs: Prostate is enlarged. Bladder: No bladder wall thickening, accounting for underdistention. Pelvic Nodes: No enlarged lymph nodes. Miscellaneous: No inguinal hernias are seen. Bones: No aggressive osseous abnormality. IMPRESSION: 1. Mild circumferential wall thickening in the distal esophagus is suspicious for esophagitis.Small hiatal hernia. 2. Colonic diverticulosis without signs of acute diverticulitis. 3. Prostatomegaly. Approved by: Pritesh Neumann M.D. on 04/22/2025 at 13:51
== END 2025-04-22 14:53 | disposition home or self-care (01) ==
PROVIDERS: Emergency Provider Family Medicine; PCP Nurse Practitioner Family
DX: M54.50 Low back pain, unspecified (principal); Z79.01 Long term (current) use of anticoagulants
CPT/HCPCS: 36415; 74177; 80053; 81003; 81015; 83690; 85025; 87086; 99283; 99284; Q9967

== ENCOUNTER 2025-04-25 00:51 | Emergency (ER) | payer OTHER, SELFPAY ==
[2025-04-25] VITALS (8 sets, daily range): BP systolic 173–198; BP diastolic 70–92; PULSE 52–60; RESP 14–16; TEMP 36.6; O2SAT 94–97; BMI 23.7
--- NOTE | 2025-04-25 00:52 | ED.BACK ---
HPI - Back Pain/Injury General Chief Complaint: Back Pain/Injury Stated Complaint: back pain Time Seen by Provider: 04/25/25 00:52 History of Present Illness HPI Narrative: Patient is a 79-year-old male with a past medical history of AFib on Pradaxa, hyperlipidemia, hypertension, BPH, presenting from home via EMS for evaluation of low back pain. He states that this is the same pain that he was in here for on 04/22/2025. At that time he was told that it was musculoskeletal and to use ice, however he states that yesterday at around 8:00 p.m. he went to sleep woke up and had more muscle spasming/pain to low back denies any trauma or falls denies any numbness weakness tingling to bilateral lower extremities, he denies any saddle paresthesias. Denies any bowel or urinary incontinence or retention. Medics states that they did give 100 of fentanyl which allowed the patient to stand walk and bear weight, however he is still complaining of pain that he describes is across his low back. He denies any other symptoms at this time Related Data Home Medications ?Medication ?Instructions ?Recorded ?Confirmed alfuzosin 10 mg tablet,extended 10 mg PO HS ##0 10/30/16 04/01/25 release 24 hr dabigatran etexilate 150 mg 150 mg PO BID 07/16/19 04/01/25 capsule (Pradaxa) cholecalciferol (vitamin D3) 50 50 mcg PO DAILY 11/26/20 04/01/25 mcg (2,000 unit) capsule losartan 50 mg tablet 50 mg PO DAILY 11/26/20 04/01/25 atorvastatin 20 mg tablet (Lipitor) 40 mg PO HS #0 tabs 03/21/23 04/01/25 acetaminophen 500 mg oral powder 500 mg PO QID PRN 04/01/25 04/01/25 packet (Tylenol Extra Strength) Previous Rx's ?Medication ?Instructions ?Recorded metoprolol succinate 50 mg 50 mg PO QDAY ##30 11/01/16 tablet,extended release 24 hr diazepam 2 mg tablet (Valium) 2 mg PO BID PRN muscle spasm 3 04/25/25 days #6 tabs methylprednisolone 4 mg tablets in See Rx Instructions PO .COMPLEX 04/25/25 a dose pack (Medrol (Juan J)) #21 ea oxycodone-acetaminophen 5 mg-325 1 tab PO Q8H PRN pain 3 days #9 04/25/25 mg tablet (Percocet) tabs Allergies Allergy/AdvReac Type Severity Reaction Status Date / Time No Known Drug Allergies Allergy Verified 04/25/25 01:01 Review of Systems Review of Systems Narrative: General: Denies fever, chills, weight loss HEENT: Denies headache, eye drainage, eye irritation, head trauma, sore throat, voice change Cardiovascular: Denies any chest pain, palpitations, tachycardia Respiratory: Denies any shortness of breath, cough, wheeze, stridor GI/: Denies any abdominal pain, nausea, vomiting, diarrhea, bright red blood per rectum, melanotic stools, urinary frequency, urinary retention, dysuria, hematuria MSK: Positive low back pain Skin: Denies any rashes, lesions, discoloration Neuro: Denies any headache, lightheadedness, dizziness, fainting, weakness Psych: Denies SI/HI Patient History Medical History History of nephrolithiasis Hematuria BPH w urinary obs/LUTS H/O nephrolithotomy with removal of calculi Kidney stones Basal cell carcinoma Arthritis Surgical History History of hernia repair History of appendectomy Family History Father Coronary artery disease Kidney stones Social History marital status: number of children: 2 household members: spouse occupational status: employed alcohol intake: never caffeine: No Exam Narrative Exam Narrative: General: Cooperative, well-developed, not in acute distress HEENT: Normocephalic, atraumatic, PERRLA, normal sclera, eyelids normal Neck: Active full range of motion, atraumatic Chest: Normal to inspection, negative crepitus, no overlying erythema ecchymosis Respiratory: Normal respiratory effort, not in acute respiratory distress, clear to auscultation bilaterally negative cough, wheeze, tachypnea, rhonchi, rales Cardiology: Regular rate rhythm negative gallop, murmur, rubs GI/: No tenderness to palpation, soft, non rigid, normal to inspection, exam deferred MSK: Full active range of motion in all 4 extremities, atraumatic, minor TTP of paraspinal muscles, b/l lower extremities neuro intact Skin: No rashes or lesions noted Neuro: Alert awake oriented x3, moves all 4 extremities spontaneously, cranial nerves intact, able to answer all questions appropriately follows commands appropriately Psych: Cooperative, negative suicidal or homicidal ideations Initial Vital Signs Initial Vital Signs: Vital Signs Blood Pressure 198/92 H 04/25/25 00:56 Course Orders Ordered: Discontinued Medications Dexamethasone (Dexamethasone 10 Mg/Ml Vial) 10 mg IV NOW ONE Stop: 04/25/25 00:58 Last Admin: 04/25/25 01:12 Dose: 10 mg Diazepam (Diazepam 10 Mg/2 Ml Syringe) 2 mg IV NOW ONE Stop: 04/25/25 00:58 Last Admin: 04/25/25 01:12 Dose: 2 mg Lidocaine (Lidocaine 5% Patch) 1 each TOP NOW ONE Stop: 04/25/25 00:58 Last Admin: 04/25/25 01:12 Dose: 1 each Vital Signs Vital signs: Vital Signs - 8 hr 04/25/25 00:56 04/25/25 00:57 04/25/25 01:00 Temperature Pulse Rate 60 Respiratory Rate Blood Pressure 198/92 H 177/86 H Pulse Oximetry 97 Oxygen Delivery Method 04/25/25 01:00 04/25/25 01:01 04/25/25 01:30 Temperature 97.8 F Pulse Rate 54 L 59 L 54 L Respiratory Rate 16 Blood Pressure 198/92 H Pulse Oximetry 97 96 95 Oxygen Delivery Method Room Air 04/25/25 01:31 04/25/25 01:31 04/25/25 02:00 Temperature Pulse Rate 54 L 54 L Respiratory Rate Blood Pressure 178/74 H Pulse Oximetry 94 95 Oxygen Delivery Method 04/25/25 02:01 04/25/25 02:01 Temperature Pulse Rate 52 L Respiratory Rate 14 Blood Pressure 173/70 H Pulse Oximetry 95 Oxygen Delivery Method Room Air MDM - Back Pain/Injury Differential Diagnosis Differential diagnosis: Likely lumbar radiculopathy, sciatica and strain of lumbar region MDM Narrative Medical decision making narrative: Patient is a 79-year-old male with a past medical history of AFib on Pradaxa, hyperlipidemia, hypertension, BPH, presenting from home via EMS for evaluation of exacerbation of low back pain. Patient was seen here on 04/22/2025 for the same. At that time he was worried that he had a kidney stone causing the pain, patient did have CT scan that they do not show this, the remainder of his workup at that time was normal/unremarkable patient was treated for muscle strain/sprain, was instructed to use Tylenol and ice to help with the symptoms, he states that yesterday at around 8:00 p.m. he did have some improvement with Tylenol and ice but states he woke up and had worsening pain denies any numbness weakness tingling to lower extremities, no saddle paresthesias no other red flags for cauda equina, patient did receive 100 of fentanyl by medics states that this did cause relief to the patient and was able to stand ambulate with help at home. At time of evaluation patient stating that he is still having some low back pain, patient was given Decadron, Valium, lidocaine patch , given patient just had a CT abdomen and pelvis on 04/22/2025 and no trauma no indication for additional imaging of the low back at this time. patient states that this did improve his symptoms was able to get him to stand bear weight, he was given strict return precautions verbalized understanding of this and agrees to being discharged home with outpatient follow up Discharge Plan Departure Patient Disposition: Home Clinical Impression: Strain of lumbar region Instructions: DI for Low Back Pain Activity Restrictions/Additional Instructions: Please follow up with the primary care and orthopedic surgery as needed Please read the discharge instructions sheet carefully and bring all papers to all doctor follow-up visits, as it may contain information that your doctor may want to see. Disease processes change and evolve, if your symptoms worsen or if you develop any new symptoms that are concerning to you please return for evaluation. Your evaluation today does not show any evidence of any life-threatening/serious illnesses requiring admission to the hospital or surgery. Please follow-up with your doctor for re-evaluation in approximately 1 day. Seek immediate medical attention for any worrisome symptoms. *If you do not have a primary care provider please contact the [facility] Resource line at [phone]. They will ask some questions about your medical history and help get you set up with a doctor in the community. Prescriptions: New methylprednisolone [Medrol (Juan J)] 4 mg tablets,dose pack See Rx Instructions .ROUTE .COMPLEX Qty: 21 0RF Rx Instructions: orally per package directions oxycodone-acetaminophen [Percocet] 5-325 mg tablet 1 tab PO Q8H PRN (Reason: pain) 3 Days Qty: 9 0RF diazepam [Valium] 2 mg tablet 2 mg PO BID PRN (Reason: muscle spasm) 3 Days Qty: 6 0RF No Action alfuzosin 10 MG tablet extended release 24 hr 10 mg PO HS Qty: 0 metoprolol succinate 50 MG tablet extended release 24 hr 50 mg PO QDAY Qty: 30 0RF cholecalciferol (vitamin D3) 50 mcg (2,000 unit) capsule 50 mcg PO DAILY losartan 50 mg tablet 50 mg PO DAILY atorvastatin [Lipitor] 20 mg tablet 40 mg PO HS Qty: 0 Pradaxa 150 mg Capsule 150 mg PO BID Tylenol Extra Strength 500 mg powder in packet 500 mg PO QID PRN Referrals: Marisela Romero ARNP [Primary Care Provider, Medical] Hector Enciso MD [Physician, Orthopedic Surgery] Stand Alone Forms: Patient Portal/API
[2025-04-25] MEDS: diazePAM 10 MG/2 ML SYRINGE 2 MG IV (01:12)
[2025-04-25] MEDS: DEXAMETHASONE 10 MG/ML VIAL IV (01:12)
[2025-04-25] MEDS: LIDOCAINE 5% PATCH 1 EACH TOP (01:12)
--- NOTE | 2025-04-25 02:10 | PC.NURSE ---
Pt ambulatory to restroom without assistance with frequent sharp pain in back. Pt states this pain was not there until he stood. Dr. Connolly made aware and currently at bedside.
[2025-04-25] MEDS: OXYCODONE/APAP 5/325 PREPACK 1 BOTTLE MISC (02:28)
== END 2025-04-25 02:43 | disposition home or self-care (01) ==
PROVIDERS: Emergency Provider Student in an Organized Health Care Education/Training Program; PCP Nurse Practitioner Family
DX: S39.012A Strain of muscle, fascia and tendon of lower back, initial encounter (principal); X58.XXXA Exposure to other specified factors, initial encounter
CPT/HCPCS: 96374; 96375; 99283; 99284; J1100; J3360